=== PATIENT | female | born 1995 | race Two or more races ===

== ENCOUNTER 2025-05-18 19:06 | Observation (INO) | payer MEDICAID, SELFPAY ==
[2025-05-18 19:16] VITALS: BMI 50.5
[2025-05-18 19:30] VITALS: PULSE 107; O2SAT 99
[2025-05-18 19:32] VITALS: BP 122/64; PULSE 101; RESP 18; RESP 98; TEMP 36.8
== END 2025-05-18 20:32 | disposition home or self-care (01) ==
PROVIDERS: Admitting Provider Obstetrics & Gynecology; Visit Provider Obstetrics & Gynecology
DX: O26.893 Other specified pregnancy related conditions, third trimester (principal); Z3A.30 30 weeks gestation of pregnancy; M54.50 Low back pain, unspecified
CPT/HCPCS: 59025; 59899